=== PATIENT | female | born 1990 | race Caucasian/White ===

== ENCOUNTER 2017-07-26 19:13 | Emergency (ER) | payer MEDICAID ==
[~2017-07-26] VITALS: Ht 165.1 cm; Wt 70.3 kg
--- NOTE | 2017-07-26 21:20 | NUR ---
PATIENT WAITING IN WAITING ROOM FOR PENDING BED OPENING IN ER. PATTIENT WITH NO DISTRESS NOTED.
--- NOTE | 2017-07-26 23:17 | NUR ---
Patient discharged to home in stable conditon. Written and verbal after care instructions given. Patient verbalizes understanding of instructions.
== END 2017-07-26 23:19 | disposition home or self-care (01) ==
LOC: ER 19:14
DX: S60.022A Contusion of left index finger without damage to nail, initial encounter (principal); S60.222A Contusion of left hand, initial encounter; Z88.0 Allergy status to penicillin; W23.0XXA Caught, crushed, jammed, or pinched between moving objects, initial encounter; Y93.89 Activity, other specified; Y92.9 Unspecified place or not applicable; Y99.9 Unspecified external cause status
CPT/HCPCS: 73140; A4663